=== PATIENT | female | born 1955 ===

== ENCOUNTER 2025-01-13 07:51 | Day surgery (SDC) | payer MEDICARE, OTHER, SELFPAY ==
--- NOTE | 2025-01-13 | PATH_ITS ---
[facility] Accession Number: [id number] No. of containers..01 Tissue . 01 Material submitted: . colon - HEPATIC . 01 Diagnosis: DESIGNATED HEPATIC, BIOPSY: Small serrated lesion, consistent with early sessile serrated adenoma. MRV 01/18/2025 1329 Local . 01 Electronically signed: . Alan Zelaya MD, PhD, Pathologist NPI- [id number] . 01 Gross description: . HEPATIC: Received in formalin are multiple fragment(s) of virgen, soft tissue measuring 0.2 x 0.2 x 0.1 cm to 0.7 x 0.1 x 0.1 cm submitted entirely in 1 cassette(s) /NICOLAS 01/15/2025 0126 Local . 01 Pathologist provided ICD-10: D12.3 . 01 CPT . 393980 Specimen Comment: A courtesy copy of this report has been sent to [phone] Performed at: [address], [place], [place] [id number] MD Anderson Baptiste MD Phone: [phone]
--- NOTE | 2025-01-13 10:06 | PM.HP.IH.1 ---
History of Present Illness History of Present Illness Date Patient Seen: 01/13/25 Chief complaint: Screening Colonoscopy Narrative: Eleven year follow-up history of colon cancer screening [facility] Surgical History (Updated 02/25/18 @ 06:32 by Conversion Provider) Status post bunionectomy Status post delivery (03/13/81) History of third molar tooth extraction Meds Home Medications and Allergies Home Medications Medication Instructions Recorded Confirmed Type sodium,potassium,mag sulfates 17.5 See Rx Instructions PO .COMPLEX 12/31/24 Rx gram-3.13 gram-1.6 gram oral soln #354 mL (Suprep Bowel Prep Kit) ascorbic acid (vitamin C) 500 mg 500 mg PO DAILY 01/13/25 01/13/25 History capsule,extended release calcium 500 mg 750 tab PO BID 01/13/25 01/13/25 History (carb,gluconate)-magnesium 250 mg (gluc,oxide) tablet (Calcium Magnesium) cholecalciferol (vitamin D3) 25 25 mcg PO DAILY 01/13/25 01/13/25 History mcg (1,000 unit) tablet (Vitamin D3) losartan 25 mg tablet 25 mg PO DAILY 01/13/25 01/13/25 History metoprolol succinate 25 mg 12.5 mg PO ONCE PM 01/13/25 01/13/25 History tablet,extended release 24 hr vitamin B complex 1 cap PO DAILY 01/13/25 01/13/25 History Allergies Allergy/AdvReac Type Severity Reaction Status Date / Time erythromycin base Allergy Severe hives Unverified 02/05/18 13:08 [From ERYTHROCIN] Exam Narrative Exam Narrative: Oropharynx free of lesions Chest clear to auscultation percussion Cardiac exam reveals no S3 or murmur Assessment & Plan Assessment & Plan narrative: Need for follow-up colon cancer screening and an 11 year interval. Risks, benefits, alternatives have been explained. Time-Based Coding :: [TOTAL MINUTES] spent with patient and on the chart (including review of chart, obtaining history, exam, reviewing outside data, placing orders, documenting exam and treatment plan, and counseling patient) on [DATE]. 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
--- NOTE | 2025-01-13 10:07 | PM.OP.COLON ---
Operative Date/Time/Diagnoses Date of procedure: 01/13/25 Pre-op diagnosis: See indication and findings Procedure & Clinicians Study performed: Colonoscopy Same procedure as scheduled: Yes Indications: Screening Surgeon: Aleyda Prieto Procedure Notes Procedure in detail: After informed consent was obtained the patient was placed in left lateral decubitus position. Video colonoscope was introduced the rectum slowly advanced cecum. Preparation was good. On slow withdrawal mucosa was carefully examined. The scope was removed. The patient tolerated procedure well. Blood loss none Complications none Sedation mac Findings 1. 8 mm polyp at the hepatic flexure in a somewhat difficult position. Using snare failed. Substituted Jumbo biopsy forceps and removed completely 2. Significant sigmoid diverticulosis 3. Otherwise negative colonoscopy to cecum We will merely await the results for biopsies to determine follow-up interval
[2025-01-13] MEDS: LACTATED RINGERS 1,000 ML 42 ML IV (10:18)
[2025-01-13 11:14] VITALS: BP 103/44; PULSE 60; RESP 13; TEMP 36.3; O2SAT 97
[2025-01-13 11:19] VITALS: BP 103/44; PULSE 57; RESP 16; O2SAT 98
[2025-01-13 11:23] VITALS: BP 107/46; PULSE 58; RESP 16; O2SAT 96
[2025-01-13 11:40] VITALS: BP 116/44; PULSE 53; RESP 16; TEMP 36.3; O2SAT 98
--- NOTE | 2025-01-13 11:42 | SUR.PHASEII ---
Pts wide awake and feeling good. Her ride went to [employer] so her wait in phase2 is related to that.
== END 2025-01-13 12:10 | disposition home or self-care (01) ==
PROVIDERS: Family Provider Naturopath; PCP Student in an Organized Health Care Education/Training Program; Referring Provider Internal Medicine Gastroenterology; Visit Provider Internal Medicine Gastroenterology
PROC: 0DJD8ZZ Inspection of Lower Intestinal Tract, Via Natural or Artificial Opening Endoscopic (ICD-10-PCS; CPT 45378; principal; 2025-01-13 10:30)
DX: Z12.11 Encounter for screening for malignant neoplasm of colon (principal); K57.30 Diverticulosis of large intestine without perforation or abscess without bleeding; D12.3 Benign neoplasm of transverse colon
CPT/HCPCS: 45380; J2704